=== PATIENT | male | born 1965 | race Caucasian/White ===

== ENCOUNTER → 2023-12-01 12:13 | Outpatient (CLI) | payer OTHER, SELFPAY | LOC: RESP 12:17 | PROVIDERS: PCP Nurse Practitioner Primary Care; Referring Provider Chiropractor; Visit Provider Chiropractor | DX: J40 Bronchitis, not specified as acute or chronic (principal); F17.210 Nicotine dependence, cigarettes, uncomplicated | CPT/HCPCS: 94010 ==